=== PATIENT | female | born 2005 | race Native Hawaiian/Other Pacific Islander ===

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

== ENCOUNTER 2023-01-05 10:53 | Observation (INO) | payer OTHER ==
[~2023-01-05] VITALS: Ht 152.4 cm; Wt 38.6 kg
[~2023-01-05 10:53] MED LIST changes: +DIASTAT ACUDIAL10 MG PR; -DIAZEPAM10 M1 RE; +GUAIFENESI PEG; +LANS30CA PEG; -LANS30CA PO; +MIRALAX17 GM PO; +MONTELUKAST SODI5 MG PEG; -MUCINEX CH100 MG/5 M PEG; -POLY3350 PO; -SINGULAIR4 MG XX; +TYLENOL PEG; -TYLENOL325 MG PEG
[2023-01-05 11:06] VITALS: BP 96/76; TEMP 98.8
[2023-01-05 12:11] LABS: SODIUM 146 mmol/L (136-145)
[2023-01-05 12:14] LABS: PLATELET COUNT 301 K/uL (152-353)
[2023-01-05 15:12] VITALS: BP 95/66; TEMP 98.6; Ht 152.4 cm; Wt 38.6 kg
[2023-01-05] MEDS ORDERED: BENEPROTEIN6 GM PEG (15:54)
[2023-01-05 16:00] VITALS: BP 106/65; TEMP 97.5
[2023-01-05] MEDS ORDERED: PROMETHAZINE DM1 SOL PEG (16:00)
[2023-01-05 20:00] VITALS: BP 118/79; TEMP 98
[2023-01-06] VITALS: BP 110/70; TEMP 96.5
[2023-01-06 04:00] VITALS: BP 101/70; TEMP 96.9
[2023-01-06 05:03] LABS: PLATELET COUNT 198 K/uL (152-353)
[2023-01-06 07:50] VITALS: BP 104/60; TEMP 96.4
== END 2023-01-06 13:35 ==
LOC: ED 10:53 → MED/SURG 13:53
PROVIDERS: Emergency Medicine Emergency Medical Services; ADMIT Family Medicine; ATTEND Family Medicine
DX: J45.998 Other asthma (principal); J20.9 Acute bronchitis, unspecified; E86.0 Dehydration; R50.9 Fever, unspecified
CPT/HCPCS: 36415; 36416; 80053; 81002; 82805; 83605; 84484; 85027; 85610; 87040; 87502; 87635; 93005; 94664; 94760; 96361; 96365; 96366; 96375; 99221; 99284; G0378; J1956; J2920; J2930; U0003

== ENCOUNTER 2023-01-15 11:22 | Inpatient (IN) | payer OTHER ==
[~2023-01-15 11:22] MED LIST changes: +BENEPROTEIN6 GM PEG; +PROMETHAZINE DM1 SOL PEG
== END 2023-02-14 17:35 | disposition still patient (30) ==
LOC: PAVB 11:22
PROVIDERS: ADMIT Family Medicine; ATTEND Family Medicine

== ENCOUNTER 2023-01-19 13:55 | Outpatient (CLI) | payer OTHER ==
[2023-01-19 14:25] LABS: POTASSIUM 4.2 mmol/L (3.6-5.2)
[2023-01-19 14:34] LABS: PLATELET COUNT 245 K/uL (152-353)
== END 2023-01-19 19:26 | disposition home or self-care (01) ==
LOC: LAB 13:55
PROVIDERS: ATTEND Family Medicine
DX: G80.0 Spastic quadriplegic cerebral palsy (principal)
CPT/HCPCS: 80053; 85027